=== PATIENT | male | born 1965 | race Caucasian/White ===

== ENCOUNTER 2024-06-17 17:28 | Emergency (ER) | payer OTHER, SELFPAY ==
[2024-06-17] VITALS (8 sets, daily range): BP systolic 117–167; BP diastolic 73–103; PULSE 75–89; BMI 25.2
[2024-06-17 19:08] LABS: % Basophils 0.8 % (0-2); % Eosinophils 1.3 % (0-6); % Immature Granulocytes 0.2 % (0-0.5); % Lymphocytes 31.3 % (20.5-51.1); % Monocytes 9.1 % (1.7-9.3); % Neutrophils 57.3 % (42.2-75.2); Absolute Basophils 0.1 10^3/uL (0-0.2); Absolute Eosinophils 0.1 10^3/uL (0-0.7); Absolute Lymphocytes 2.6 10^3/uL (1.2-3.4); Absolute Monocytes 0.8 10^3/uL (0.1-0.6); Absolute Neutrophils 4.8 10^3/uL (1.4-6.5); Hematocrit 42.3 % (39.0-52.0); Hemoglobin 15.4 g/dL (13.0-18.0); Mean Corp Hgb Conc. 36.4 g/dL (33.0-37.0); Mean Corpuscular Hgb 31.6 pg (27.0-31.0); Mean Corpuscular Volume 86.7 fL (80.0-94.0); Mean Platelet Volume 9.4 fL (7.4-10.4); Nucleated Red Blood Cells % 0 % (-); Platelet Count 302 10^3/uL (130-400); Red Blood Cell Count 4.88 10^6/uL (4.70-6.10); Red Cell Dist. Width 12.3 % (11.5-14.5); White Blood Cell Count 8.3 10^3/uL (4.8-10.8)
--- NOTE | 2024-06-17 19:08 | ED.GENMED ---
History of Present Illness
General
Chief Complaint: Chest Pain
Source: patient and spouse
Exam Limitations: none
Time Seen by Provider: 06/17/24 18:26
Nursing documentation reviewed up to this point in time: agreed with
History of Present Illness
History of Present Illness:
58-year-old male with no reported chronic medical issues presents with his for evaluation of heaviness in his chest and dizziness. Patient reports he has had intermittent symptoms for the past 2 weeks�he reports roughly one to two episodes
daily lasting for about 20 minutes at a time where he began to feel lightheaded and have some heaviness across his chest. No clear triggering or relieving factors noted and timing of the symptoms variable�occasionally happened in the morning,
occasionally at night. He says that he did see his primary doctor and had some outpatient blood work drawn a few days ago which was unremarkable (CBC, CMP, PSA). He was referred to cardiology (Dr. Jackson) but his appointment is not for another
week or 2. Today he says he woke up and his symptoms have been consistent for the past 8 hours and so he decided to come to the emergency room. He describes heaviness across the chest with some radiation towards the left shoulder. Denies any
associated nausea, vomiting, abdominal pain. Denies any associated shortness of breath. No recent illness. No swelling or pain in the legs. He denies having had similar symptoms in the past. He does note that he has been hydrating vigorously
thinking that perhaps he could be dehydrated but it does not seem to be helping.
Review of Systems
Review of Systems
All Other Systems: ROS reviewed and negative except as documented in HPI and ROS
Constitutional: Denies fever or chills
EENT: Denies sore throat or runny nose
Respiratory: Denies cough or trouble breathing
Cardiac: Reports chest pain; Denies diaphoresis, palpitations or syncope
ABD/GI: Denies abdominal pain, nausea or vomiting
: Denies flank pain
Musculoskeletal: Denies neck pain or back pain
Neurological: Reports dizzy; Denies headache, weakness or numbness
Phy Exam
Physical Exam
Physical Exam:
General: Awake, alert, oriented x3; no acute distress
Head: Normocephalic, atraumatic
Eyes: Conjunctiva normal, sclera anicteric
Throat: Airway intact, handling secretions
Neck: Trachea midline, supple without meningismus
Lungs: Clear to auscultation bilaterally, no wheezing, rales, rhonchi
Heart: Regular rate and rhythm, no murmurs, gallops, or rubs
Abd: Soft, non distended, nontender
Neuro: Cranial nerves grossly intact, speech fluid
Skin: no rash
Extremities: No edema in extremities, equal pulses in all extremities
Scores
Heart Failure Risk
Heart Failure Risk Score: Not Applicable
Heart Score for Chest Pain Patients
STEMI patient?: No
History: Slightly or Non-Suspicious
ECG: Nonspecific Repolarization
Age: >45 - <65 years
Risk Factors: No Risk Factors
Troponin: </= Normal Limit
Heart Score for Chest Pain Patients: 2
Heart Score Risk: 2.5% MACE over next 6 weeks
Withdrawal Assessment of Alcohol
Withdrawal Assessment Completed?: Not applicable
Course
Orders/Labs/Results
Orders:
Orders
06/17/24 17:29
EKG [Electrocardiogram (*1)] Urgent
Reason for Study: Chest Pain
EKG- Treatment ONCE
06/17/24 18:57
Complete Blood Count/With Diff Urgent
Comprehensive Metabolic Panel Urgent
D-Dimer Urgent
Troponin I Urgent
06/17/24 20:07
CT Chest Pe Study Urgent
Comment:
Reason For Exam: chest pain, dizziness, +dimer
06/17/24 21:09
Orthostatic VS- Treatment ONCE
06/17/24 21:14
Electrocardiogram (*1) Urgent
Reason for Study: Chest Pain
EKG- Treatment ONCE
Abnormal Lab Results
06/17/24
18:57
MCH 31.6 H pg
(27.0-31.0)
Absolute Monos (auto) 0.8 H 10^3/uL
(0.1-0.6)
D-Dimer 2.21 H ug/mlFEU
(0.00-0.50)
06/17/24 18:57
06/17/24 18:57
Vital Signs
Initial and Last Documented VS:
Initial Vital Signs
Temp Pulse Resp BP Pulse Ox
37.0 C 96 16 167/103 100
06/17/24 17:35 06/17/24 17:35 06/17/24 17:35 06/17/24 17:35 06/17/24 17:35
Last Documented Vital Signs
Temp Pulse Resp BP Pulse Ox
37.0 C 72 18 130/90 95
06/17/24 17:35 06/17/24 21:45 06/17/24 21:45 06/17/24 21:29 06/17/24 21:45
MDM/Problems Addressed
Differential Diagnosis Includes:
Dysrhythmia, anemia, ACS, valvular disease, PE, dehydration, anxiety, aortic dissection less likely
MDM/Problems Addressed:
58-year-old male presents for evaluation of intermittent lightheadedness associated with heaviness in the chest over the past 2 weeks that has been constant all day today. Hypertensive but otherwise normal vitals. Physical exam as above. EKG
shows sinus rhythm with no STEMI. Plan to place an IV check labs including CBC and CMP, troponin, D-dimer. Check a chest x-ray. Will monitor on telemetry. Reassess after the above.
Labs reviewed: CBC unremarkable, CMP no clinically significant abnormalities. Troponin is undetectable and with constant symptoms for 8 hours today this is sufficient to rule out acute AR. I did discuss with cardiology given nonspecific ST changes
on EKG and they agree negative troponin after 8 hours of chest pain reassuring and likely reasonable for chest pain hotline as an outpatient. His D-dimer is positive; he has not yet gone for chest x-ray, will forego x-ray in favor of CTA to rule
out PE. His vital signs have remained stable.
CTA negative for PE, no signs of aortic dissection. On clinical reassessment his vitals are normal. He says he feels much better. Low suspicion for emergent pathology at this point�symptoms not clearly exertional and he had 8 hours of chest pain
with an undetectable troponin which rules out acute AR as cause for symptoms today and I think goes somewhat against his chest pain being cardiac. I did offer him admission for observation here and cardiology consultation versus discharge with
referral of ER chest pain hotline to expedite outpatient follow-up. He feels comfortable with discharge with expedited referral. I did speak to him and his in detail about return precautions advised him to avoid strenuous activity until he
has full cardiac assessment. He indicated understanding. All questions answered.
Acute Exacerbation and/or Progression of Chronic Illness:
Acutely hypertensive resolved without intervention continue to monitor but no additional antihypertensive indicated at present
Acute Exacerbation and/or Progression of Chronic Illness: HTN
*Radiology
Radiology exam reviewed: preliminary read by ED provider and radiology read reviewed
*Pulse Oximetry
Patient hypoxic: no
*EKG
Interpreted by ED Provider?: Yes
Heart Rate: 91
Rate: normal
Rhythm: sinus and PAC's
[place]: normal axis
Interval: normal interval
QRS Pattern: normal QRS
Ischemia: non-specific ST changes
*Critical Care Note
Total Time (30-74mins, 75-104mins- exclusive of procedures): Not Applicable
Data Reviewed
Source: patient, records (Had outpatient echocardiogram in 2021 which showed EF of 65 to 70% with trace mitral regurg and mild tricuspid regurg) and spouse
Patient Management
Discussion with other providers: Stress Test Technician (Discussed with cardiology)
Escalation/DeEscalation of care consider admission/obs:
Offered admission versus discharge with expedited follow-up�using shared decision making patient opted for discharge with expected follow-up
ED Attending Note
-
Portions of this chart may have been created with voice recognition software.� Occasional wrong word or��sound alike� substitutions may have occurred due to the inherent limitations of voice recognition software.
Discharge Plan
Departure
Patient Disposition: Home (Routine Discharge)
Date of Disposition: 06/17/24
Time of Disposition: 21:56
Patient with high blood pressure during this ER visit?: Yes
Discharge Problem:
Lightheadedness, Chest heaviness
Instructions: Chest Pain CBC Follow Up
Referrals:
Vaibhav Jackson MD [Active] - Call in 1-3 days for appt
Grady Hawkins DO [Family Provider] - Call in 1-3 days for appt
Activity Restrictions/Additional Instructions:
Thank you for visiting the Emergency Department at [facility].
1. Please schedule a follow up appointment as directed. Call first thing tomorrow morning to make an appointment.
2. If indicated, please take your medications as instructed and indicated on discharge paperwork.
3. If any of your symptoms do not improve, or persist, or become more severe within 6-12 hours, please return to the emergency department for further care.
4. Please return to the emergency department if you develop a headache, neck pain/stiffness, fever greater than 100.4F, chest pain, shortness of breath, persistent nausea, vomiting, slurred speech, difficulty walking, numbness/tingling, weakness,
signs of infection or any other symptoms that are worrisome to you.
Please call [phone] if you have any questions.
Interventions
Interventions:
*Risk Screen - Suicide Last Done: 06/17/24 17:35
*General Assessment Last Done: 06/17/24 17:35
*Neglect/Abuse Screening Last Done: 06/17/24 17:35
ED- Fall Risk Assessment Last Done: 06/17/24 18:40
*ED COVID-19 Vaccine History Last Done: 06/17/24 18:40
ED- Cardiac Assessment Last Done: 06/17/24 21:50
Discharge Date and Time
Print Language: [place]OOK ISLAND[place]
[2024-06-17 19:17] LABS: D-Dimer 2.21 ug/mlFEU (0.00-0.50)
[2024-06-17 19:18] LABS: ALT (SGPT) 50 U/L (0-50); AST (SGOT) 38 U/L (17-59); Albumin 4.7 g/dl (3.5-5.0); Alkaline Phosphatase 122 U/L (38-126); Blood Urea Nitrogen 20 mg/dl (9-20); Calcium 9.8 mg/dl (8.4-10.2); Carbon Dioxide 28 mmol/L (22-30); Chloride 100 mmol/L (98-107); Estimated Creatinine Clearance 95 ml/min; Glucose 97 mg/dl (70-99); Potassium 3.8 mmol/L (3.5-5.1); Sodium 136 mmol/L (135-145); Total Bilirubin 0.6 mg/dl (0.2-1.3); Total Protein 7.6 g/dl (6.3-8.2); eGFR > 60.00
[2024-06-17 19:31] LABS: Troponin I < 0.012 ng/ml
== END 2024-06-17 22:29 | disposition home or self-care (01) ==
LOC: EMR 17:28
PROVIDERS: EMERGENCY PHYSICIAN Emergency Medicine; FAMILY PHYSICIAN Family Medicine
DX: R42 Dizziness and giddiness (principal); R07.89 Other chest pain; R20.2 Paresthesia of skin; I08.1 Rheumatic disorders of both mitral and tricuspid valves
CPT/HCPCS: 99285; 71275; 80053; 84484; 85025; 85379; 93005; Q9967

== ENCOUNTER → 2024-06-30 10:24 | Outpatient (REF) | payer OTHER, SELFPAY | LOC: RCS 10:24 | PROVIDERS: ATTENDING PHYSICIAN Internal Medicine Cardiovascular Disease; FAMILY PHYSICIAN Family Medicine | DX: R07.89 Other chest pain (principal); R03.0 Elevated blood-pressure reading, without diagnosis of hypertension; R42 Dizziness and giddiness | CPT/HCPCS: 93017 ==

== ENCOUNTER 2024-10-14 11:04 | Emergency (ER) | payer OTHER, SELFPAY ==
[2024-10-14 11:09] VITALS: BP 147/100
[2024-10-14 11:31] VITALS: BMI 26.2
[2024-10-14 11:32] VITALS: BP 166/88
[2024-10-14 11:56] LABS: % Basophils 0.9 % (0-2); % Eosinophils 1.4 % (0-6); % Immature Granulocytes 0.3 % (0-0.5); % Monocytes 9.3 % (1.7-9.3); % Neutrophils 67.1 % (42.2-75.2); Absolute Basophils 0.1 10^3/uL (0-0.2); Absolute Eosinophils 0.1 10^3/uL (0-0.7); Absolute Lymphocytes 1.5 10^3/uL (1.2-3.4); Absolute Monocytes 0.7 10^3/uL (0.1-0.6); Absolute Neutrophils 4.7 10^3/uL (1.4-6.5); Hematocrit 45.9 % (39.0-52.0); Hemoglobin 15.7 g/dL (13.0-18.0); Mean Corp Hgb Conc. 34.2 g/dL (33.0-37.0); Mean Corpuscular Hgb 31.7 pg (27.0-31.0); Mean Corpuscular Volume 92.7 fL (80.0-94.0); Mean Platelet Volume 9.5 fL (7.4-10.4); Nucleated Red Blood Cells % 0 % (-); Platelet Count 266 10^3/uL (130-400); Red Blood Cell Count 4.95 10^6/uL (4.70-6.10); Red Cell Dist. Width 12.4 % (11.5-14.5)
[2024-10-14 12:05] LABS: ALT (SGPT) 44 U/L (0-50); AST (SGOT) 35 U/L (17-59); Albumin 4.6 g/dl (3.5-5.0); Alkaline Phosphatase 114 U/L (38-126); Blood Urea Nitrogen 24 mg/dl (9-20); Calcium 9.9 mg/dl (8.4-10.2); Carbon Dioxide 29 mmol/L (22-30); Chloride 98 mmol/L (98-107); Estimated Creatinine Clearance 94 ml/min; Glucose 108 mg/dl (70-99); Potassium 4.4 mmol/L (3.5-5.1); Sodium 138 mmol/L (135-145); Total Bilirubin 0.6 mg/dl (0.2-1.3); Total Protein 7.5 g/dl (6.3-8.2); eGFR > 60.00
--- NOTE | 2024-10-14 12:09 | ED.GENMED ---
History of Present Illness
<Ruth Ann Patel MD, Resident - Last Filed: 10/15/24 06:11>
General
Chief Complaint: Dizziness
Source: patient
Exam Limitations: none
Time Seen by Provider: 10/14/24 11:35
Travel History
Have you traveled to any high risk areas for coronavirus over the past 14 days?: No
Have you had any contact with someone who has COVID-19?: No
Do you have any symptoms of coronavirus? Fever > 100 degrees, chills, cough, shortness of breath, sore throat, loss of taste or smell, muscle aches, or headache?: No
History of Present Illness
History of Present Illness:
59-year-old male with PMHx significant for hypoglycemia and glossopharyngeal neuralgia presents to the hospital for evaluation of dizziness. His dizziness started in the a.m. today when he woke up and was doing his work, his dizziness persisted
with dark spots in front of his eyes so he called his son to help him calm down from his bedroom and felt like a sharp shooting and nonradiating left-sided chest pain, 5/10 in intensity lasting for couple of minutes, and then subsided. He denies
having associated shortness of breath, orthopnea, PND, swelling of his feet, syncope or loss of consciousness. He had similar episode day before yesterday that lasted for 30 to 40 minutes and subsided. He had similar episodes in the past for which
he was worked up by cardiology, and received a stress test which was negative.
He denies sensation of things in the room spinning around him, fevers, chills, headaches, blurring of vision, change in bowel or bladder habits, neck pain, focal weakness, paresthesias.
If applicable-neuro sx onset
Onset of symptoms known: No
Time pt last seen normal is known: No
Past History
<Ruth Ann Patel MD, Resident - Last Filed: 10/15/24 06:11>
Past History
ED Past Medical History: Other
Phy Exam
<Ruth Ann Patel MD, Resident - Last Filed: 10/15/24 06:11>
General Physical Exam
General Presentation: well appearing and no apparent distress
General Skin: warm
General Habitus: normal
General Mental: alert
General Hydration: appears well hydrated
Cardiovascular Exam
Cardiovascular Exam: regular rate/rhythm, no edema, no gallop, no murmur and normal peripheral pulses
Heart Sounds: normal
Pulmonary Exam
Pulmonary Exam: lungs clear, no respiratory distress, no rales, no crackles and no rhonchi
Gastrointestinal Exam
Gastrointestinal Exam: normal bowel sounds, non tender, soft and non distended
Neurological Exam
Neurological Exam: alert, CN II-XII intact, no motor deficits, normal reflexs, no sensory deficits and cerebellum intact
Musculoskeletal Exam
Musculoskeletal Exam: full ROM (in neck. neck supple.) and no edema
Course
<Ruth Ann Patel MD, Resident - Last Filed: 10/15/24 06:11>
Orders/Labs/Results
Orders:
Orders
10/14/24 11:05
Electrocardiogram (*1) Urgent
Reason for Study: Chest Pain
EKG- Treatment ONCE
10/14/24 11:35
Troponin I Urgent
10/14/24 11:37
CMP [Comprehensive Metabolic Panel] Urgent
Complete Blood Count/With Diff Urgent
TSH Reflex To Free T4 Urgent
10/14/24 12:03
Electrocardiogram (*1) Urgent
Reason for Study: Vertigo / Dizzy
EKG- Treatment ONCE
10/14/24 13:38
Add On- LAB Urgent
Tests Added?: TSH reflex to t 4
10/14/24 14:02
Troponin I Urgent
10/14/24 15:07
CARDIOLOGY CONSULT Urgent
Consulting Provider: Jose Luis Hunt
Was physician already notified: Yes
Abnormal Lab Results
10/14/24
11:37
MCH 31.7 H pg
(27.0-31.0)
Absolute Monos (auto) 0.7 H 10^3/uL
(0.1-0.6)
BUN 24 H mg/dl
(9-20)
Glucose 108 H mg/dl
(70-99)
10/14/24 11:37
10/14/24 11:37
Vital Signs
Initial and Last Documented VS:
Initial Vital Signs
Temp Pulse Resp BP Pulse Ox
97.9 F 74 18 147/100 100
10/14/24 11:09 10/14/24 11:09 10/14/24 11:09 10/14/24 11:09 10/14/24 11:09
Last Documented Vital Signs
Temp Pulse Resp BP Pulse Ox
97.9 F 85 26 141/87 98
10/14/24 11:09 10/14/24 17:00 10/14/24 17:00 10/14/24 15:00 10/14/24 17:00
<Erik Madrigal MD - Last Filed: 10/14/24 15:39>
Orders/Labs/Results
Orders:
Orders
10/14/24 11:05
Electrocardiogram (*1) Urgent
Reason for Study: Chest Pain
EKG- Treatment ONCE
10/14/24 11:35
Troponin I Urgent
10/14/24 11:37
CMP [Comprehensive Metabolic Panel] Urgent
Complete Blood Count/With Diff Urgent
TSH Reflex To Free T4 Urgent
10/14/24 12:03
Electrocardiogram (*1) Urgent
Reason for Study: Vertigo / Dizzy
EKG- Treatment ONCE
10/14/24 13:38
Add On- LAB Urgent
Tests Added?: TSH reflex to t 4
10/14/24 14:02
Troponin I Urgent
10/14/24 15:07
CARDIOLOGY CONSULT Urgent
Consulting Provider: Jose Luis Hunt
Was physician already notified: Yes
Abnormal Lab Results
10/14/24
11:37
MCH 31.7 H pg
(27.0-31.0)
Absolute Monos (auto) 0.7 H 10^3/uL
(0.1-0.6)
BUN 24 H mg/dl
(9-20)
Glucose 108 H mg/dl
(70-99)
10/14/24 11:37
10/14/24 11:37
Vital Signs
Initial and Last Documented VS:
Initial Vital Signs
Temp Pulse Resp BP Pulse Ox
97.9 F 74 18 147/100 100
10/14/24 11:09 10/14/24 11:09 10/14/24 11:09 10/14/24 11:09 10/14/24 11:09
Last Documented Vital Signs
Temp Pulse Resp BP Pulse Ox
97.9 F 85 26 141/87 98
10/14/24 11:09 10/14/24 17:00 10/14/24 17:00 10/14/24 15:00 10/14/24 17:00
<Ruth Ann Patel MD, Resident - Last Filed: 10/15/24 06:11>
MDM/Problems Addressed
Differential Diagnosis Includes:
Dehydration, hypoglycemia, tachy or bradyarrythmias, vertigo.
<Ruth Ann Patel MD, Resident - Last Filed: 10/15/24 06:11>
*Pulse Oximetry
Patient hypoxic: no
*EKG
Interpreted by ED Provider?: Yes
EKG Intrepretation Date: 10/14/24
EKG Intrepretation Time: 11:07
Interpretation: abnormal
Comparison EKG: changes noted
Heart Rate: 82
Rate: normal
Rhythm: sinus and PAC's
[place]: normal axis
Interval: normal QT interval
QRS Pattern: normal QRS
Ischemia: non-specific ST changes
*Policy Intern Interpretation
Rate: tachycardiac
Interpretation: abnormal
Heart Rate: 105
Rhythm: sinus and PAC's
*Critical Care Note
Total Time (30-74mins, 75-104mins- exclusive of procedures): Not Applicable
<Ruth Ann Patel MD, Resident - Last Filed: 10/15/24 06:11>
Update Note
Update Note:
CBC and CMP within normal limits, troponin less than 0.012.
Repeat troponin 3 hours from now.
ED Attending Note
<Ruth Ann Patel MD, Resident - Last Filed: 10/15/24 06:11>
-
Portions of this chart may have been created with voice recognition software.� Occasional wrong word or��sound alike� substitutions may have occurred due to the inherent limitations of voice recognition software.
<Erik Madrigal MD - Last Filed: 10/14/24 15:39>
ED Attending Note
Patient seen and examined by attending physician: Yes
I performed a history and physical exam of patient and discussed management with resident, I reviewed resident's note and agree with documented findings and plan of care.: Yes
ED Attending Note:
I have seen and evaluated the patient with a [id number] encounter. I have spoken to the resident and involved in the medical history, the physical exam, medical decision making.
Evaluation and management service: agree unless noted differently below.
Results interpretation: agree unless noted differently below.
Focused HPI: 59-year-old male with no significant chronic medical history presents to the emergency room for evaluation of lightheadedness. Patient reports symptoms have been intermittent since yesterday. He reports that yesterday he was doing a
work event and noticed that he was intermittently lightheaded. He says that he did go out in the evening and had 5 or 6 beers with his friends but he drink plenty of water afterwards. This morning he says he woke up and noticed that he was having
some lightheadedness while he was sitting at the breakfast table. He says he has had occasional transient episodes since and decided he should come to the emergency to be evaluated. He does not have associated palpitations. He says that he had
slight chest pain this morning but has not had recurrence and does not have any chest pain at present. No shortness of breath. No headache. No abdominal or flank pain. He did have palpitations earlier this year and saw [facility] cardiology
and had outpatient workup including stress test and Holter monitor which were nondiagnostic. He does note that this morning when he checked his blood pressure to see if it might account for his symptoms it was notably elevated.
Physical exam: Awake alert not in distress. Hypertensive but otherwise normal vitals. He has no cardiac rubs gallops or murmurs. Lungs clear to auscultation bilaterally. No edema in his extremities. No focal neurologic deficits.
Medical Decision Makin-year-old male presents for evaluation of intermittent lightheadedness. He had labs sent off including a CBC and a CMP�CMP showed some slight elevation of BUN which could suggest some dehydration especially the setting of
some alcohol last night but he says symptoms started prior to drinking any beers last night. His troponins are undetectable. EKG shows sinus rhythm here with no delta wave, no Brugada, normal QTc. While monitoring on telemetry he was noted to
have intermittent episodes of tachycardia up to the 120s�130s; P waves appear present and it looks like sinus tachycardia with PACs however these episodes do correlate with his symptoms. Case discussed with cardiology to evaluate.
Discharge Plan
Departure
Patient Disposition: Home (Routine Discharge)
Date of Disposition: 10/14/24
Time of Disposition: 17:00
Patient with high blood pressure during this ER visit?: Yes
Condition: Good
Discharge Problem:
Dizziness
Instructions: Dizziness, Nonvertigo, (DC)
Prescriptions:
New
carvedilol [Coreg] 6.25 mg tablet
6.25 mg PO BID Qty: 60 0RF
Referrals:
Vaibhav Jackson MD [Active] - Call in 1-3 days for appt
Grady Hawkins DO [Family Provider] -
Activity Restrictions/Additional Instructions:
Follow up with your primary care in 1-2 weeks.
Recommend outpatient cardiology work up for arrythmias.
Interventions
Interventions:
*Risk Screen - Suicide Last Done: 10/14/24 11:12
*General Assessment Last Done: 10/14/24 11:12
*Neglect/Abuse Screening Last Done: 10/14/24 11:12
*ED COVID-19 Vaccine History Last Done: 10/14/24 11:12
*Nursing Disposition Last Done: 10/14/24 17:27
ED- Cardiac Assessment Last Done: 10/14/24 11:35
ED- Neurological Assessment Last Done: 10/14/24 12:00
ED Swallowing Screen Last Done: 10/14/24 12:00
Discharge Date and Time
Discharge Date/Time: 10/14/24 17:28
Print Language: MOZAMBICAN
[2024-10-14 12:50] LABS: Troponin I < 0.012 ng/ml
[2024-10-14 13:00] VITALS: BP 153/100
[2024-10-14 14:00] VITALS: BP 149/85
[2024-10-14 14:39] LABS: Troponin I < 0.012 ng/ml
[2024-10-14 15:00] VITALS: BP 141/87
--- NOTE | 2024-10-14 15:36 | CON.CAR ---
Addendum entered and electronically signed by Jose Luis Hunt MD 10/14/24 16:25:
I saw and examined the patient.
The NUCLEAR EQUIPMENT TEST ENGINEER's note was reviewed and I agree with the note.
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 It is not clear to me what the etiology of his dizziness is, becuase when he checked his BP and pulse he was hypertensive with a normal HR. However,
he did appear to have runs of a tach while here in the hospital.
- coreg 6.25 mg bid
- 14 day monitor for further eval
- abstain from alcohol and CBD drops for facial pain
Original Note:
Consultation
Consultation Request
Date/Time Consultation Requested: 10/14/2024 15:07
Date/Time Consultation Performed: 10/14/2024 15:15
Requesting Provider: Dr. Madrigal
Performing Provider: LIZZETTE Crawford for Dr. Hunt
Reason for Consultation: Dizziness
Medical History
-
Chief Complaint: Dizziness
History of Present Illness:
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 This morning, he was sitting at his desk getting work done when he had the sudden onset of dizziness. He checked his blood pressure. It
ranged between 160�175/90�100. Heart rate in the 80s. He called his son who just left to come back. He did not have syncope. He felt very lightheaded and off balance. While presenting to the emergency department he had left anterior chest
tightness. It lasted less than 5 minutes. He reports it was 4/10 in severity. He denied associated shortness of breath, diaphoresis, and radiation of the pain.
Past Medical History
Past Surgical History: Other (Hemorrhoidectomy)
Social History
Tobacco: Non-Smoker
Alcohol: Occasional
Drug: None
Living: With Family
Employment: Employed
Family History
Family History: Reviewed & Not Pertinent (Denies early CAD and SCD)
Allergies / Home Medications
Allergy/AdvReac Type Severity Reaction Status Date / Time
No Known Allergies Allergy Unverified 06/17/24 17:35
Review of Systems
-
History Source: Patient
All other systems: Negative unless noted
Constitutional: No Symptoms
EENT: No Symptoms
Respiratory: No Symptoms
Cardiac: Chest Pain
Abdomen/GI: No Symptoms
: No Symptoms
Musculoskeletal: No Symptoms
Skin: No Symptoms
Neurological: Dizzy
Endocrine: No Symptoms
Hematologic/Lymphatic: No Symptoms
Physical Exam
Vital Signs
Temp Pulse Resp BP Pulse Ox
97.9 F 81 20 149/85 100
10/14/24 11:09 10/14/24 14:30 10/14/24 14:30 10/14/24 14:00 10/14/24 14:30
Lab Results
10/14/24 11:37
10/14/24 11:37
Troponin I < 0.012 ng/ml 10/14/24 14:02
Physical Exam
General: Well Developed, Well Nourished, No Apparent Distress and Comfortable
HEENT: Normocephalic, Anicteric and Moist Mucous Membranes
Respiratory: Non Labored Respirations
Cardiac: S1/S2 and Regular Rhythm; Negative Peripheral Edema
Breast: Deferred by me
GI: Soft, Non Tender, Non Distended and Normal Bowel Sounds
Rectal: Deferred by Provider
Genito-urinary: No Costovertebral Tender
Musculoskeletal: No Clubbing, No Cyanosis and No Edema
Skin: Warm and Dry
Neuro: AO x 3
Hematologic/Lymphatic: No Lymphadenopathy
Psych: Calm
Impression / Plan
-
Dizziness
-Sudden onset at home
-He has been having random dizziness for the> 1 year, TTE and ETT stable
-Will arrange for 14 days of cardiac monitoring in the outpatient setting
Tachycardia
-Poor tracing, fairly regular, possibly atrial tachycardia
-Start carvedilol 6.25 mg twice daily
Chest tightness
-Anterior chest tightness in the car to the ER, lasting less than 5 minutes
-EKG without acute ischemia, troponin <0.012 x 2
HTN
-He reports elevated blood pressure readings without a formal diagnosis of hypertension
-Carvedilol as above
Data Reviewed
-
EKG: Report Reviewed by me
Medical Tests (Nuc Med, Echo etc): Report Reviewed by me
Labs: Labs Reviewed by me
Old Records: Reviewed
[2024-10-14 16:20] LABS: TSH Reflex To Free T4 0.99 uIU/ml (0.47-4.68)
== END 2024-10-14 17:28 | disposition home or self-care (01) ==
LOC: EMR 11:04
PROVIDERS: Emergency Medicine; Student in an Organized Health Care Education/Training Program; CONSULT PHYSICIAN Internal Medicine Cardiovascular Disease; EMERGENCY PHYSICIAN Emergency Medicine; FAMILY PHYSICIAN Family Medicine
DX: R42 Dizziness and giddiness (principal); R03.0 Elevated blood-pressure reading, without diagnosis of hypertension
CPT/HCPCS: 99284; 80053; 84443; 84484; 85025; 93005

== ENCOUNTER 2025-04-22 19:55 | Emergency (ER) | payer OTHER, SELFPAY ==
[2025-04-22 20:03] VITALS: BP 128/94
[2025-04-22 20:31] LABS: % Eosinophils 3.5 % (0-6); % Immature Granulocytes 0.2 % (0-0.5); % Lymphocytes 37.2 % (20.5-51.1); % Monocytes 8.8 % (1.7-9.3); % Neutrophils 49.3 % (42.2-75.2); Absolute Basophils 0.1 10^3/uL (0-0.2); Absolute Eosinophils 0.3 10^3/uL (0-0.7); Absolute Monocytes 0.7 10^3/uL (0.1-0.6); Hemoglobin 15.2 g/dL (13.0-18.0); Mean Corp Hgb Conc. 34.5 g/dL (33.0-37.0); Mean Corpuscular Hgb 31.4 pg (27.0-31.0); Mean Corpuscular Volume 90.9 fL (80.0-94.0); Mean Platelet Volume 9.4 fL (7.4-10.4); Nucleated Red Blood Cells % 0 % (-); Platelet Count 257 10^3/uL (130-400); Red Blood Cell Count 4.84 10^6/uL (4.70-6.10); Red Cell Dist. Width 12.4 % (11.5-14.5); White Blood Cell Count 8.2 10^3/uL (4.8-10.8)
[2025-04-22 20:45] LABS: ALT (SGPT) 28 U/L (0-50); AST (SGOT) 29 U/L (17-59); Albumin 4.3 g/dl (3.5-5.0); Alkaline Phosphatase 97 U/L (38-126); Blood Urea Nitrogen 27 mg/dl (9-20); Calcium 9.6 mg/dl (8.4-10.2); Carbon Dioxide 32 mmol/L (22-30); Chloride 103 mmol/L (98-107); Glucose 95 mg/dl (70-99); Sodium 139 mmol/L (135-145); Total Bilirubin 0.5 mg/dl (0.2-1.3); Total Protein 7.4 g/dl (6.3-8.2); eGFR > 60.00
[2025-04-22 20:57] LABS: Troponin I < 0.012 ng/ml
[2025-04-22 22:50] VITALS: BP 141/98
[2025-04-22 23:00] VITALS: BP 137/85
[2025-04-22 23:18] VITALS: BP 155/83
[2025-04-22 23:19] VITALS: BP 155/83; BP 169/114; BP 173/85; PULSE 61; PULSE 67; PULSE 71
[2025-04-22 23:21] VITALS: BP 169/114
--- NOTE | 2025-04-22 23:25 | ED.GENMED ---
History of Present Illness
<INOCENCIA Almaguer - Last Filed: 04/23/25 03:24>
General
Chief Complaint: Dizziness
Source: patient
Exam Limitations: none
Time Seen by Provider: 04/22/25 23:07
History of Present Illness
History of Present Illness:
Pt is a 59 yo M with a PMH of hypertension who presents to the ER c/o L sided chest pain and dizziness x a few days. Patient explains that he is having a dull intermittent ache in his upper left chest. He cannot pinpoint any provoking or palliative
factors for the pain. He says that the pain seems to be more likely in the afternoons and evenings, less so in the early parts of the day. He notes he's also having episodes of dizziness including today at [place] where he felt as though his field of
view started to 'go black' and he thought he had better sit down. He notes he has removed several ticks over the last few days, [place] He denies rashes from these. He notes he had an episode with dizziness spells similar
to this 'about a year ago' where he was treated with a 'termite renewal inspector antibiotic' for Lyme despite negative titers which resolved his symptoms. He denies nausea, vomiting, arthralgias, or any other associated symptoms.
Past History
<INOCENCIA Almaguer - Last Filed: 04/23/25 03:24>
Past History
ED Past Medical History: Other
Review of Systems
<Clari Gerardo NP - Last Filed: 04/23/25 17:46>
Review of Systems
Allergies reviewed?: Yes
All Other Systems: ROS reviewed and negative except as documented in HPI and ROS
Constitutional: Reports no symptoms
EENT: Reports no symptoms
Respiratory: Reports no symptoms
Cardiac: Reports chest pain
ABD/GI: Reports no symptoms
: Reports no symptoms
Musculoskeletal: Reports no symptoms
Skin: Reports no symptoms
Neurological: Reports dizzy
Psychiatric: Reports no symptoms
Phy Exam
<Clari Gerardo MATERIAL CHECKER - Last Filed: 04/23/25 17:46>
General Physical Exam
General Presentation: well appearing and no apparent distress
General age: appears stated age
General Skin: warm and dry
General Habitus: normal
General Mental: alert
General Hydration: appears well hydrated
Cardiovascular Exam
Cardiovascular Exam: regular rate/rhythm and no edema
Pulmonary Exam
Pulmonary Exam: lungs clear and no respiratory distress
Gastrointestinal Exam
Gastrointestinal Exam: normal bowel sounds, non tender, soft and no organomegaly
Musculoskeletal Exam
Musculoskeletal Exam: full ROM and neuro vasc intact
Skin Exam
Skin Exam: normal color, warm/dry and no rash
Psychiatric Exam
Psychiatric Exam: normal mood/affect
Course
<INOCENCIA Almaguer - Last Filed: 04/23/25 03:24>
Orders/Labs/Results
Orders:
Orders
04/22/25 19:56
ECG [Electrocardiogram (*1)] Urgent
Reason for Study: Chest Pain
04/22/25 19:57
EKG- Treatment ONCE
04/22/25 20:20
Complete Blood Count/With Diff Urgent
Comprehensive Metabolic Panel Urgent
Lyme Progressive Urgent
Troponin I Urgent
04/22/25 23:20
CT Head W/o Iv Contrast Urgent
Comment:
Reason For Exam: dizzy
04/22/25 23:24
Troponin I Urgent
Orthostatic Vital Signs As Directed
Orthostatic VS Frequency: Now
Abnormal Lab Results
04/22/25
20:20
MCH 31.4 H pg
(27.0-31.0)
Absolute Monos (auto) 0.7 H 10^3/uL
(0.1-0.6)
Carbon Dioxide 32 H mmol/L
(22-30)
BUN 27 H mg/dl
(9-20)
04/22/25 20:20
04/22/25 20:20
Vital Signs
Initial and Last Documented VS:
Initial Vital Signs
Temp Pulse Resp BP Pulse Ox
98.1 F 75 18 128/94 100
04/22/25 20:03 04/22/25 20:03 04/22/25 20:03 04/22/25 20:03 04/22/25 20:03
Last Documented Vital Signs
Temp Pulse Resp BP Pulse Ox
98.1 F 60 12 137/85 99
04/22/25 20:03 04/23/25 02:23 04/23/25 02:23 04/23/25 02:23 04/23/25 02:23
Robertlt;Clari Gerardo NP - Last Filed: 04/23/25 17:46>
Orders/Labs/Results
Orders:
Orders
04/22/25 19:56
ECG [Electrocardiogram (*1)] Urgent
Reason for Study: Chest Pain
04/22/25 19:57
EKG- Treatment ONCE
04/22/25 20:20
Complete Blood Count/With Diff Urgent
Comprehensive Metabolic Panel Urgent
Lyme Progressive Urgent
Troponin I Urgent
04/22/25 23:20
CT Head W/o Iv Contrast Urgent
Comment:
Reason For Exam: dizzy
04/22/25 23:24
Troponin I Urgent
Orthostatic Vital Signs As Directed
Orthostatic VS Frequency: Now
Abnormal Lab Results
04/22/25
20:20
MCH 31.4 H pg
(27.0-31.0)
Absolute Monos (auto) 0.7 H 10^3/uL
(0.1-0.6)
Carbon Dioxide 32 H mmol/L
(22-30)
BUN 27 H mg/dl
(9-20)
04/22/25 20:20
04/22/25 20:20
Vital Signs
Initial and Last Documented VS:
Initial Vital Signs
Temp Pulse Resp BP Pulse Ox
98.1 F 75 18 128/94 100
04/22/25 20:03 04/22/25 20:03 04/22/25 20:03 04/22/25 20:03 04/22/25 20:03
Last Documented Vital Signs
Temp Pulse Resp BP Pulse Ox
98.1 F 60 12 137/85 99
04/22/25 20:03 04/23/25 02:23 04/23/25 02:23 04/23/25 02:23 04/23/25 02:23
<INOCENCIA Almaguer - Last Filed: 04/23/25 03:24>
*Critical Care Note
Total Time (30-74mins, 75-104mins- exclusive of procedures): Not Applicable
<Clari Gerardo NP - Last Filed: 04/23/25 17:46>
*Radiology
Radiology exam reviewed: radiology read reviewed
*Pulse Oximetry
Patient hypoxic: no
*EKG
Rate: normal
Rhythm: sinus
<Clari Gerardo NP - Last Filed: 04/23/25 17:46>
Update Note
Update Note:
Patient to ED with complaint of dizziness and left sided chest pain that started today. Labs reviewed, no concerning findings. Head CT neg for acute process. EKG, NSR, tropnin neg x 2. No tilt with orthostatics. Will discharge home with rx for
meclizine. Given instructions on s/s to return to ED and he is agreeable to plan.
ED Attending Note
<INOCENCIA Almaguer - Last Filed: 04/23/25 03:24>
-
Portions of this chart may have been created with voice recognition software.� Occasional wrong word or��sound alike� substitutions may have occurred due to the inherent limitations of voice recognition software.
Discharge Plan
Departure
Patient Disposition: Home (Routine Discharge)
Date of Disposition: 04/23/25
Time of Disposition: 01:43
Patient with high blood pressure during this ER visit?: No
Condition: Good
Covid-19: Not Applicable
Discharge Problem:
Dizziness
Instructions: Dizziness
Prescriptions:
New
meclizine 25 mg tablet
25 mg PO TID PRN (Reason: dizziness) Qty: 12 0RF
No Action
carvedilol [Coreg] 6.25 mg tablet
6.25 mg PO BID Qty: 60 0RF
Referrals:
UNKNOWN - PT DOES,NOT KNOW [Family Provider] -
Activity Restrictions/Additional Instructions:
Follow up with your family doctor. Return to the emergency department for any changes in/worsening of your symptoms
Interventions
Interventions:
*Risk Screen - Suicide Last Done: 04/22/25 20:02
*General Assessment Last Done: 04/22/25 20:02
*Neglect/Abuse Screening Last Done: 04/22/25 20:02
*ED- Fall Risk Assessment Last Done: 04/23/25 01:00
*ED COVID-19 Vaccine History Last Done: 04/22/25 20:02
*Nursing Disposition Last Done: 04/23/25 02:23
ED- Neurological Assessment Last Done: 04/22/25 23:24
ED- Cardiac Assessment Last Done: 04/23/25 00:00
ED Swallowing Screen Last Done: 04/22/25 23:28
Discharge Date and Time
Discharge Date/Time: 04/23/25 02:27
Print Language: [place]ET[place]ESE
[2025-04-23 00:17] VITALS: BP 142/86
[2025-04-23 01:00] VITALS: BP 137/95
[2025-04-23 01:38] LABS: Troponin I 0.019 ng/ml
[2025-04-23 02:00] VITALS: BP 136/91
[2025-04-23 02:23] VITALS: BP 137/85
[2025-04-24 11:15] LABS: Lyme Antibody Screen, EIA Negative (Negative)
== END 2025-04-23 02:27 | disposition home or self-care (01) ==
LOC: EMR 19:55
PROVIDERS: Emergency Medicine; EMERGENCY PHYSICIAN Emergency Medicine
DX: R42 Dizziness and giddiness (principal); R07.89 Other chest pain
CPT/HCPCS: 99284; 70450; 80053; 84484; 85025; 86618; 93005

== ENCOUNTER → 2025-05-17 10:40 | Outpatient (REF) | payer OTHER, SELFPAY | LOC: RCS 10:40 | PROVIDERS: ATTENDING PHYSICIAN Internal Medicine Cardiovascular Disease; FAMILY PHYSICIAN Family Medicine | DX: R07.89 Other chest pain (principal); R55 Syncope and collapse; R00.2 Palpitations | CPT/HCPCS: 93017 ==

== ENCOUNTER → 2025-06-06 12:57 | Outpatient (REF) | payer OTHER, SELFPAY | LOC: RCS 12:57 | PROVIDERS: ATTENDING PHYSICIAN Internal Medicine Cardiovascular Disease; FAMILY PHYSICIAN Family Medicine | DX: R94.39 Abnormal result of other cardiovascular function study (principal) | CPT/HCPCS: 93017; 93350 ==